=== PATIENT | male | born 1935 | race Caucasian/White ===

== ENCOUNTER 2024-02-17 20:05 | Inpatient (IN) | payer MEDICARE, BC, SELFPAY ==
[2024-02-17 16:18] VITALS: BMI 25.2
[2024-02-17 16:19] VITALS: BP 173/81
[2024-02-17 16:27] VITALS: BP 159/80
[2024-02-17 16:33] VITALS: BP 154/69
[2024-02-17 17:00] VITALS: BP 155/71
[2024-02-17 17:18] LABS: % Basophils 0.3 % (0-2); % Eosinophils 1.3 % (0-6); % Immature Granulocytes 0.8 % (0-0.5); % Lymphocytes 14.1 % (20.5-51.1); % Monocytes 9.9 % (1.7-9.3); % Neutrophils 73.6 % (42.2-75.2); Absolute Eosinophils 0.1 10^3/uL (0-0.7); Absolute Immature Granulocytes 0.1 10^3/uL (0-0.05); Absolute Lymphocytes 1.1 10^3/uL (1.2-3.4); Absolute Monocytes 0.7 10^3/uL (0.1-0.6); Absolute Neutrophils 5.5 10^3/uL (1.4-6.5); Hematocrit 36.4 % (39.0-52.0); Hemoglobin 12.2 g/dL (13.0-18.0); Mean Corp Hgb Conc. 33.5 g/dL (33.0-37.0); Mean Corpuscular Hgb 28.5 pg (27.0-31.0); Mean Platelet Volume 10.4 fL (7.4-10.4); Nucleated Red Blood Cells % 0 % (-); Platelet Count 214 10^3/uL (130-400); Red Blood Cell Count 4.28 10^6/uL (4.70-6.10); Red Cell Dist. Width 13.8 % (11.5-14.5); White Blood Cell Count 7.4 10^3/uL (4.8-10.8)
[2024-02-17 17:37] LABS: ALT (SGPT) 19 U/L (0-50); AST (SGOT) 22 U/L (17-59); Albumin 4.3 g/dl (3.5-5.0); Alkaline Phosphatase 52 U/L (38-126); Blood Urea Nitrogen 34 mg/dl (9-20); Calcium 9.8 mg/dl (8.4-10.2); Carbon Dioxide 26 mmol/L (22-30); Chloride 106 mmol/L (98-107); Estimated Creatinine Clearance 38 ml/min; Glucose 83 mg/dl (70-99); Potassium 4.7 mmol/L (3.5-5.1); Sodium 138 mmol/L (135-145); Total Bilirubin 0.4 mg/dl (0.2-1.3); Total Protein 6.5 g/dl (6.3-8.2); eGFR 52.84
--- NOTE | 2024-02-17 17:52 | ED.GENMED ---
History of Present Illness
General
Chief Complaint: Change in Mental Status
Source: patient and spouse
Time Seen by Provider: 02/17/24 17:16
History of Present Illness
History of Present Illness:
Patient is a 88-year-old male with history of prior TIA about 2 years ago, hypertension, hyperlipidemia, BPH, mild cognitive impairment presenting to the emergency department altered mental status. Patient's is at bedside provides most of the
story. Patient himself states that he has been tired over the past 2 days. Patient's states that yesterday she noticed that he was disoriented and did not know he was at home. She came home this morning and noticed that he was still
disoriented but was able to be oriented. His last known normal was at 11 AM. When she checked in on him at 2 PM she noticed that he was having slurring of his speech. It did improve shortly after. She also noted that he had an abnormal gait when
this occurred. That has also resolved. At this time patient's does state that the confusion is intermittent. During his last TIA 2 years ago he did have significant dysarthria. He is on aspirin. He did take it today. He denies any chest
pain. No fevers or chills. No urinary symptoms. No cough or shortness of breath. No recent falls. He is not on any blood thinners.
If applicable-neuro sx onset
Onset of symptoms known: Yes
Date of onset of symptoms: 02/17/24
Time of onset of symptoms: 14:00
Time pt last seen normal is known: Yes
Date last time pt seen normal: 02/17/24
Time last time pt seen normal: 11:00
Phy Exam
Physical Exam
Physical Exam:
GENERAL: in no acute distress
HEENT: normocephalic, extraocular movements intact, moist oral mucosa
NECK: normal inspection
RESPIRATORY: no respiratory distress, clear to auscultation bilaterally
CARDIOVASCULAR: regular rate and rhythm
ABDOMEN/: soft, non-distended, non-tender to palpation, no rebound or guarding
EXTREMITIES: non-tender, no edema/swelling
NEUROLOGIC: NEUROLOGIC: alert and oriented x 2 (disoriented to time), cranial nerves II-XII intact, right upper extremity strength 5/5, left upper extremity strength 5/5, right lower extremity strength 5/5, left lower extremity strength 5/5, normal
sensation to light touch, normal [id number] and [id number], gait not tested formally
SKIN: warm
Scores
NIH Stroke Score
Level of Consciousness: 0 - Alert
LOC Questions: 1-Answers one correctly
LOC Commands: 0-Performs both correctly
Best Horizontal Gaze: 0-Normal
Visual Negrete: 0=Normal, no visual loss
Facial Palsy: 0=Normal, symmetrical
Motor - Right Arm: 0=No drift 10 seconds
Motor - Left Arm: 0=No drift 10 seconds
Motor - Right Le-No drift 5 seconds
Motor - Left Le-No drift 5 seconds
Limb Ataxia: 0-Absent
Sensation: 0-Normal
Best Language: 0-No aphasia
Dysarthria: 0-Normal
Extinction and Inattention: 0-No abnormality
Total Score:: 1
Course
Orders/Labs/Results
Orders:
Orders
02/17/24 17:10
Complete Blood Count/With Diff Urgent
Comprehensive Metabolic Panel Urgent
02/17/24 17:35
CT Head W/o Iv Contrast Urgent
Comment:
Reason For Exam: TIA symptoms, AMS
02/17/24 17:36
Electrocardiogram (*1) Stat
Reason for Study: Other
Other Reason for Exam: neuro symptoms
EKG- Treatment ONCE
02/17/24 17:58
CR Chest - 2 Views Urgent
Comment:
Reason For Exam: AMS
02/17/24 18:33
COVID-19 Antigen Urgent
Source: Nasal Swab
Urinalysis Reflex To Culture Urgent
Date Specimen was Collected: 02/17/24
Time Specimen was Collected: 18:32
Urine Microscopic Reflex Cult Urgent
Urine Culture Urgent
TIRSO Source: U
Specimen Description:
Date Specimen was Collected: 02/17/24
Time Specimen was Collected: 18:32
02/17/24 19:14
Cephalexin Monohydrate [Keflex] 500 mg PO NOW STA
Abnormal Lab Results
02/17/24 02/17/24
17:10 18:33
RBC 4.28 L 10^6/uL
(4.70-6.10)
Hgb 12.2 L g/dL
(13.0-18.0)
Hct 36.4 L %
(39.0-52.0)
Abs Immat Gran (auto) 0.1 H 10^3/uL
(0-0.05)
Absolute Lymphs (auto) 1.1 L 10^3/uL
(1.2-3.4)
Absolute Monos (auto) 0.7 H 10^3/uL
(0.1-0.6)
Immature Gran % 0.8 H %
(0-0.5)
Lymphocytes % 14.1 L %
(20.5-51.1)
Monocytes % 9.9 H %
(1.7-9.3)
BUN 34 H mg/dl
(9-20)
Ur Occult Blood Reflex 1+ A
(Negative)
Leukocyte Esterase Rfl 2+ A
(Negative)
Urine WBC (Reflex) >100 A /HPF
(0-5)
Urine Bacteria (Reflex) Moderate A
(Negative)
02/17/24 17:10
02/17/24 17:10
Vital Signs
Initial and Last Documented VS:
Initial Vital Signs
Temp Pulse Resp BP Pulse Ox
98.7 F 80 16 173/81 98
02/17/24 16:19 02/17/24 16:19 02/17/24 16:19 02/17/24 16:19 02/17/24 16:19
Last Documented Vital Signs
Temp Pulse Resp BP Pulse Ox
98.7 F 78 19 160/78 98
02/17/24 16:19 02/17/24 18:00 02/17/24 18:00 02/17/24 18:00 02/17/24 18:00
MDM/Problems Addressed
Differential Diagnosis Includes:
Patient is a 88-year-old male with history of prior TIA, hypertension, mild cognitive impairment, BPH presenting to the emergency department with altered mental status as well as dysarthria and gait imbalance that has now resolved. Vitals are
initially notable for hypertension though it did improve without any intervention. Exam does show a man who is oriented x 2. He does not have any focal deficits at this time. Patient's does state that during the drive over here it did
improve. concern for TIA versus CVA versus infection such as UTI COVID or pneumonia could be anemia given the tiredness or metabolic derangement. Will check blood work EKG urine COVID swab chest x-ray and CT scan..
*Critical Care Note
Total Time (30-74mins, 75-104mins- exclusive of procedures): Not Applicable
Update Note
Update Note:
Labs. Unremarkable. Urine does appear infected. Given the disorientation and age will treat with antibiotics.
CT as interpreted by me: No acute abnormality. He already took aspirin for today so we will hold off
I discussed the case with hospitalist for admission for suspected TIA workup as well as altered mental status possibly from this UTI
ED Attending Note
-
Portions of this chart may have been created with voice recognition software.� Occasional wrong word or��sound alike� substitutions may have occurred due to the inherent limitations of voice recognition software.
Discharge Plan
Departure
Patient Disposition: Admit
Date of Disposition: 02/17/24
Time of Disposition: 19:17
Admit to doctor: jad
Presentation/result/management discussed w/ accepting MD/DO: Hospitalist
Discharge Problem:
Brain TIA, Acute UTI, AMS (altered mental status)
Referrals:
PRIVATE,PHYSICIAN [Family Provider] -
Interventions
Interventions:
*Risk Screen - Suicide Last Done: 02/17/24 16:19
*Neglect/Abuse Screening Last Done: 02/17/24 16:19
ED- Fall Risk Assessment Last Done: 02/17/24 17:47
ED- Pulmonary Assessment Last Done: 02/17/24 17:47
ED- Neurological Assessment Last Done: 02/17/24 17:47
ED- Cardiac Assessment Last Done: 02/17/24 17:47
ED Swallowing Screen Last Done: 02/17/24 17:47
Discharge Date and Time
Print Language: SLOVENIAN
[2024-02-17 18:00] VITALS: BP 160/78
[2024-02-17 18:42] LABS: Urine Albumin Trace (Neg - Trace); Urine Bilirubin Negative (Negative); Urine Character Slightly Cloudy (Clear); Urine Color Yellow; Urine Glucose Negative (Negative); Urine Ketone Negative (Negative); Urine Leukocyte 2+ (Negative); Urine Nitrite Negative (Negative); Urine Occult Blood 1+ (Negative); Urine Urobilinogen Negative (Neg - 1+)
[2024-02-17 18:52] LABS: COVID-19 Antigen Negative (Negative)
[2024-02-17 18:53] LABS: Urine Bacteria Moderate (Negative); Urine Red Blood Cell 0-2 /HPF (0-2); Urine White Cell >100 /HPF (0-5)
[2024-02-17] MEDS: KEFLEX 500 MG PO (19:22)
--- NOTE | 2024-02-17 19:42 | HPS.HSE ---
Family Physician
-
Family Physician: PHYSICIAN PRIVATE
Chief Complaint
-
altered mental status
History of Present Illness
88-year-old male past medical history of TIA 2 years ago, carpal tunnel, hypertension, hyperlipidemia, BPH, mild cognitive impairment, presenting to the emergency room for mental status. Patient's provides most of the story. Patient states
that he has been tired for the past 2 days. states that yesterday she noticed he was disoriented and did not know he was at home. She came home this morning noticed that he was still disoriented. His last known normal was at 11 AM. She
checked on him at 2 PM he was having slurred speech which did improve later. She also noticed he had an abnormal gait at the same time which is also improved. He had some headache before. Patient's states that confusion is intermittent. He
had dysarthria he had TIA 2 years ago. He denies chest pain. He denies any fevers or chills. He denies any urinary symptoms. He denies any cough or shortness of breath. He denies any recent falls. Denies any nausea vomiting or diarrhea.
He denies any blurry vision. He has some chronic numbness and tingling in his left hand carpal tunnel.
Denies smoking or alcohol use.
Medical History
Past Medical History
Past Medical History: Reports Other (TIA 2 years ago, carpal tunnel, hypertension, hyperlipidemia, BPH, mild cognitive impairment)
Past Surgical History: Reports None
Social History
Tobacco: Non-smoker
Alcohol: None
Drug: None
Family History
Family History: Not pertinent
Allergies / Home Medications
Allergies reflects when Allergies were last updated in [facility].
Home Medications with original date entered in [facility]
Allergy/Medication List:
Allergies
Allergy/AdvReac Type Severity Reaction Status Date / Time
No Known Allergies Allergy Unverified 02/17/24 16:26
Home Medications
aspirin 81 mg tablet,delayed release 81 mg PO DAILY 02/17/24
atorvastatin 40 mg tablet 40 mg PO Q48H 02/17/24
cholecalciferol (vitamin D3) 50 mcg (2,000 unit) tablet (Vitamin D3) 50 mcg PO BID 02/17/24
dutasteride 0.5 mg capsule 0.5 mg PO DAILY 02/17/24
enalapril maleate 20 mg tablet 20 mg PO BID 02/17/24
magnesium oxide 400 mg PO DAILY 02/17/24
mv-mn-folic 200 mcg-vit K 15 mcg-lutein 5 mg-zeaxanthin 1 mg capsule (PreserVision AREDS 2 Plus Multivit) 1 cap PO BID 02/17/24
tadalafil 5 mg tablet 5 mg PO DAILY 02/17/24
tamsulosin 0.4 mg capsule 0.4 mg PO HS 02/17/24
Review of Systems
-
History Source: Patient
A 12 point ROS was completed and negative except as noted: Yes
Constitutional: Reports No Symptoms
EENT: Reports No Symptoms
Respiratory: Reports No Symptoms
Cardiac: Reports No Symptoms
Abdomen/GI: Reports No Symptoms
: Reports No Symptoms
Musculoskeletal: Reports No Symptoms
Skin: Reports No Symptoms
Neurological: Reports See HPI
Endocrine: Reports No Symptoms
Hematologic/Lymphatic: Reports No Symptoms
Psych: Reports No Symptoms
Physical Exam
Vital Signs
Vital Signs
Temp Pulse Resp BP Pulse Ox
98.7 F 78 19 160/78 98
02/17/24 16:19 02/17/24 18:00 02/17/24 18:00 02/17/24 18:00 02/17/24 18:00
Physical Exam
General: Well Developed, Well Nourished and No Apparent Distress
HEENT: NormoCephalic, Moist mucous membranes and Atraumatic
Respiratory: Clear
Cardiac: S1/S2 and Regular Rhythm; No Murmur or Rub
GI: Soft, Non Tender, Non Distended and Normal Bowel Sounds; No Organomegaly
Rectal: Deferred by Provider
Musculoskeletal: No Clubbing, No Cyanosis and No Edema
Skin: No Rash
Neuro: Nonfocal/grossly intact
Laboratory Results
-
02/17/24 17:10
02/17/24 17:10
Laboratory Results
Total Bilirubin 0.4 mg/dl (0.2-1.3) 02/17/24 17:10
AST 22 U/L (17-59) 02/17/24 17:10
ALT 19 U/L (0-50) 02/17/24 17:10
Alkaline Phosphatase 52 U/L (38-126) 02/17/24 17:10
Data Reviewed
-
Lab Data: Labs Reviewed by me
Old Records: Reviewed
Impression/Plan
-
IMPRESSION:
PLAN:
# Urinary tract infection versus less likely TIA
-No focal deficits on examination, presentation overall more consistent with metabolic encephalopathy from UTI
-UA shows greater than 100 WBC, moderate bacteria, plus leukocyte esterase, slightly cloudy urine
-Ceftriaxone
-Can consider TIA/CVA workup if no improvement with antibiotic
History of TIA 2 years ago
-Continue aspirin, statin
Essential hypertension
-Continue enalapril
Hyperlipidemia
-Continue statin
BPH
-Continue dutasteride, tamsulosin, tadalafil
Mild cognitive impairment
Full code
DVT prophylaxis�SCDs
Regular diet
--- NOTE | 2024-02-17 22:48 | PTCARENOTE ---
Pt arrived onto floor @2248. Pt able to ambulate into room with minimal assistance. Pt with no complaints of pain at this time, vital signs are stable. Pt oriented to room and call loera; will continue to monitor
[2024-02-17 23:00] VITALS: BP 144/65; BMI 24.5
[2024-02-17] MEDS: VITAMIN D3 (cholecalciferol) 50 MCG PO (23:12)
[2024-02-17] MEDS: VASOTEC 20 MG PO (23:12)
[2024-02-17] MEDS: OCUVITE SOFTGEL 1 CAP PO (23:12)
[2024-02-17] MEDS: STERILE WATER FOR INJECTION 10 ML IV (23:13)
[2024-02-17] MEDS: ROCEPHIN 1000 MG IV (23:13)
[2024-02-17] MEDS: FLOMAX 0.4 MG PO (23:14)
[2024-02-18] VITALS (8 sets, daily range): BP systolic 119–164; BP diastolic 62–79; PULSE 80; O2SAT 100
[2024-02-18 07:09] LABS: % Basophils 0.2 % (0-2); % Immature Granulocytes 0.6 % (0-0.5); % Lymphocytes 12.8 % (20.5-51.1); % Monocytes 7.8 % (1.7-9.3); % Neutrophils 76.6 % (42.2-75.2); Absolute Eosinophils 0.2 10^3/uL (0-0.7); Absolute Immature Granulocytes 0.1 10^3/uL (0-0.05); Absolute Monocytes 0.6 10^3/uL (0.1-0.6); Absolute Neutrophils 6.2 10^3/uL (1.4-6.5); Hematocrit 38.2 % (39.0-52.0); Hemoglobin 12.8 g/dL (13.0-18.0); Mean Corp Hgb Conc. 33.5 g/dL (33.0-37.0); Mean Corpuscular Hgb 28.6 pg (27.0-31.0); Mean Corpuscular Volume 85.3 fL (80.0-94.0); Mean Platelet Volume 10.4 fL (7.4-10.4); Nucleated Red Blood Cells % 0 % (-); Platelet Count 202 10^3/uL (130-400); Red Blood Cell Count 4.48 10^6/uL (4.70-6.10); Red Cell Dist. Width 13.7 % (11.5-14.5); White Blood Cell Count 8.1 10^3/uL (4.8-10.8)
[2024-02-18] MEDS: VITAMIN D3 (cholecalciferol) 50 MCG PO ×2 (07:34→19:59)
[2024-02-18] MEDS: ASPIR LOW (ENTERIC COATED) 81 MG PO (07:34)
[2024-02-18] MEDS: VASOTEC 20 MG PO ×2 (07:34→19:59)
[2024-02-18] MEDS: OCUVITE SOFTGEL 1 CAP PO ×2 (07:34→19:59)
[2024-02-18] MEDS: PROSCAR 5 MG PO (07:34)
[2024-02-18] MEDS: MAG-TAB SR 84 MG PO (07:35)
[2024-02-18 07:36] LABS: ALT (SGPT) 19 U/L (0-50); AST (SGOT) 22 U/L (17-59); Albumin 4.4 g/dl (3.5-5.0); Alkaline Phosphatase 57 U/L (38-126); Blood Urea Nitrogen 35 mg/dl (9-20); Calcium 9.8 mg/dl (8.4-10.2); Carbon Dioxide 24 mmol/L (22-30); Chloride 107 mmol/L (98-107); Estimated Creatinine Clearance 49 ml/min; Glucose 102 mg/dl (70-99); Potassium 4.9 mmol/L (3.5-5.1); Sodium 137 mmol/L (135-145); Total Bilirubin 0.5 mg/dl (0.2-1.3); Total Protein 6.7 g/dl (6.3-8.2); eGFR > 60.00
--- NOTE | 2024-02-18 13:07 | CM ---
Case natan reviewed patient's chart and met with eloise and eloise lives with spouse alec one story home, patint is indedpent with adl's and ambulation, no dme, patient states he does not have VN at this time.
PCP: Dr. Moseley
Pharmacy: [facility]
--- NOTE | 2024-02-18 17:11 | W.PN.HOSP.TC ---
Today's Communication/Plan
-
see outlined plan
Assessment / Plan
Assessment / Plan
Assessment:
Complicated UTI in male
Hx of BPH with self-cath 1/day
- bladder scan/SC protocol in place
- continue Rocephin, day 2; await cultures
- continue dutasteride, tamsulosin, tadalafil
TME from UTI
- felt less likely TIA with daily ASA compliance, negative CT head and recent carotid US normal
- monitor clinically as UTI tx continues
History of TIA 2 years ago
- continue aspirin, statin
Essential hypertension
- continue enalapril
Hyperlipidemia
- continue statin
Mild cognitive impairment
DVT ppx: SCDS
Code: Full
Anticipated Discharge: > 48 hours
Subjective/Interval History
-
Date of Service: February 18, 2024
no new complaints
feels much improved today; no focal deficits
Objective Data
-
Labs:
Laboratory Results
02/18/24
06:47
WBC 8.1
Hgb 12.8 L
Hct 38.2 L
Plt Count 202
Sodium 137
Potassium 4.9
Chloride 107
Carbon Dioxide 24
BUN 35 H
Creatinine 1.0
Glucose 102 H
Calcium 9.8
Total Bilirubin 0.5
AST 22
ALT 19
Alkaline Phosphatase 57
Vital Signs:
Vital Signs
Temp Pulse Resp BP Pulse Ox
98.1 F 79 18 138/67 99
02/18/24 15:00 02/18/24 15:00 02/18/24 15:00 02/18/24 15:00 02/18/24 15:00
I&O
02/17/24 02/18/24 02/19/24
06:59 06:59 06:59
Intake Total 120 / 120
Balance 120 / 120
Physical Exam
-
General: No Apparent Distress
HEENT: Normocephalic and Atraumatic
Respiratory: Negative Wheezes
Cardiac: Regular Rhythm and S1/S2
GI: Soft
Musculoskeletal: No Edema
Neuro: AO x 3
Hematologic / Lymphatic: No Lymphadenopathy
Psych: Calm
Data Reviewed
-
Total Time Spent with Patient (in minutes): 44
Labs: Labs Reviewed by me
[2024-02-18] MEDS: FLOMAX 0.4 MG PO (19:59)
[2024-02-18] MEDS: ROCEPHIN 1000 MG IV (23:07)
[2024-02-18] MEDS: STERILE WATER FOR INJECTION 10 ML IV (23:07)
[2024-02-19] VITALS (7 sets, daily range): BP systolic 114–172; BP diastolic 6–87
[2024-02-19 07:43] LABS: Hematocrit 38.8 % (39.0-52.0); Hemoglobin 13.3 g/dL (13.0-18.0); Mean Corp Hgb Conc. 34.3 g/dL (33.0-37.0); Mean Corpuscular Hgb 28.6 pg (27.0-31.0); Mean Corpuscular Volume 83.4 fL (80.0-94.0); Mean Platelet Volume 10.4 fL (7.4-10.4); Platelet Count 217 10^3/uL (130-400); Red Blood Cell Count 4.65 10^6/uL (4.70-6.10); Red Cell Dist. Width 13.5 % (11.5-14.5); White Blood Cell Count 10.5 10^3/uL (4.8-10.8)
[2024-02-19] MEDS: MAG-TAB SR 84 MG PO (07:53)
[2024-02-19] MEDS: LIPITOR 40 MG PO (07:54)
[2024-02-19] MEDS: OCUVITE SOFTGEL 1 CAP PO ×2 (07:54→20:34)
[2024-02-19] MEDS: VASOTEC 20 MG PO ×2 (07:55→20:35)
[2024-02-19] MEDS: ASPIR LOW (ENTERIC COATED) 81 MG PO (07:55)
[2024-02-19] MEDS: VITAMIN D3 (cholecalciferol) 50 MCG PO ×2 (07:55→20:35)
[2024-02-19] MEDS: PROSCAR 5 MG PO (07:55)
[2024-02-19 08:00] LABS: Calcium 9.8 mg/dl (8.4-10.2); Carbon Dioxide 23 mmol/L (22-30); Estimated Creatinine Clearance 55 ml/min; Potassium 4.3 mmol/L (3.5-5.1); eGFR > 60.00
[2024-02-19 08:09] LABS: Blood Urea Nitrogen 28 mg/dl (9-20); Chloride 105 mmol/L (98-107); Glucose 115 mg/dl (70-99); Sodium 134 mmol/L (135-145)
--- NOTE | 2024-02-19 08:34 | W.PN.HOSP.TC ---
Today's Communication/Plan
-
switch to UNASYN for CONS reported in urine
Assessment / Plan
Assessment / Plan
Assessment:
Complicated UTI in male
Hx of BPH with self-cath 1/day
- bladder scan/SC protocol in place
- reported CONS in Urine; switch to Unasyn, day 1
- continue dutasteride, tamsulosin, tadalafil
TME from UTI
- felt less likely TIA with daily ASA compliance, negative CT head and recent carotid US normal
- monitor clinically as UTI tx continues
History of TIA 2 years ago
- continue aspirin, statin
Essential hypertension
- continue enalapril
Hyperlipidemia
- continue statin
Mild cognitive impairment
DVT ppx: SCDS
Code: Full
Anticipated Discharge: Within 24 hours
Subjective/Interval History
-
Date of Service: February 19, 2024
no new complaints
offered condolences to patient and his ('s mother passed last evening on hospice)
Objective Data
-
Labs:
Laboratory Results
02/19/24
07:26
WBC 10.5
Hgb 13.3
Hct 38.8 L
Plt Count 217
Sodium 134 L
Potassium 4.3
Chloride 105
Carbon Dioxide 23
BUN 28 H
Creatinine 0.9
Glucose 115 H
Calcium 9.8
Vital Signs:
Vital Signs
Temp Pulse Resp BP Pulse Ox
98.2 F 82 16 114/62 98
02/19/24 07:20 02/19/24 07:20 02/19/24 07:20 02/19/24 07:20 02/19/24 07:20
I&O
02/18/24 02/19/24 02/20/24
06:59 06:59 06:59
Intake Total 120 / 120 1440 / 1440
Output Total 1450 / 1450
Balance 120 / 120 -10 / -10
Physical Exam
-
General: No Apparent Distress
HEENT: Normocephalic and Atraumatic
Respiratory: Negative Wheezes
Cardiac: Regular Rhythm and S1/S2
GI: Soft
Genito-urinary: No Costovertebral Tender
Musculoskeletal: No Edema
Neuro: AO x 3
Hematologic / Lymphatic: No Lymphadenopathy
Psych: Calm
Data Reviewed
-
Total Time Spent with Patient (in minutes): 42
Labs: Labs Reviewed by me
[2024-02-19] MEDS: UNASYN IV ×3 (10:32→23:17)
[2024-02-19] MEDS: LIDOCAINE 4% PATCH 1 PATCH TOPICAL (10:32)
[2024-02-19] MEDS: TYLENOL 650 MG PO (10:33)
[2024-02-19] MEDS: FLOMAX 0.4 MG PO (20:35)
[2024-02-20 03:14] VITALS: BP 114/75
[2024-02-20] MEDS: UNASYN IV ×2 (04:13→08:36)
[2024-02-20] MEDS: FLUSH (NSS) 2 FLUSH IV (04:14)
[2024-02-20] MEDS: LIDOCAINE URO-JET 2% 1 SYRINGE TOPICAL (05:20)
--- NOTE | 2024-02-20 05:20 | PTCARENOTE ---
Pt. forgetful, he refused to be straight cathed due to penis hurting from previous caths, notified JOSE ANTONIO Pace, ordered Lidocaine gel to apply, bladder scanned pt. for 697 ml, pt. called to question the procedure, staff and explained the
importance of removing the urine in the bladder, pt. agreed, straight cathed pt. for 850 ml clear yellow urine while was on speaker phone with pt. talking him through, pt. tolerated well.
[2024-02-20 07:42] VITALS: BP 130/74
[2024-02-20] MEDS: ASPIR LOW (ENTERIC COATED) 81 MG PO (08:33)
[2024-02-20] MEDS: VASOTEC 20 MG PO (08:33)
[2024-02-20] MEDS: PROSCAR 5 MG PO (08:34)
[2024-02-20] MEDS: VITAMIN D3 (cholecalciferol) 50 MCG PO (08:34)
[2024-02-20] MEDS: OCUVITE SOFTGEL 1 CAP PO (08:35)
[2024-02-20] MEDS: MAG-TAB SR 84 MG PO (08:35)
[2024-02-20] MEDS: LIDOCAINE 4% PATCH 1 PATCH TOPICAL (08:35)
[2024-02-20 08:36] LABS: Hematocrit 36.3 % (39.0-52.0); Hemoglobin 12.3 g/dL (13.0-18.0); Mean Corp Hgb Conc. 33.9 g/dL (33.0-37.0); Mean Corpuscular Hgb 29.5 pg (27.0-31.0); Mean Corpuscular Volume 87.1 fL (80.0-94.0); Mean Platelet Volume 10.8 fL (7.4-10.4); Platelet Count 183 10^3/uL (130-400); Red Blood Cell Count 4.17 10^6/uL (4.70-6.10); Red Cell Dist. Width 13.5 % (11.5-14.5); White Blood Cell Count 8.1 10^3/uL (4.8-10.8)
[2024-02-20 09:21] LABS: Blood Urea Nitrogen 21 mg/dl (9-20); Calcium 9.4 mg/dl (8.4-10.2); Carbon Dioxide 29 mmol/L (22-30); Chloride 103 mmol/L (98-107); Estimated Creatinine Clearance 55 ml/min; Glucose 98 mg/dl (70-99); Potassium 4.3 mmol/L (3.5-5.1); Sodium 137 mmol/L (135-145); eGFR > 60.00
--- NOTE | 2024-02-20 09:41 | W.PN.HOSP.TC ---
Today's Communication/Plan
-
Bianchi and discharge
Assessment / Plan
Assessment / Plan
Assessment:
Complicated UTI in male
Hx of BPH with self-cath 1/day
- bladder scan/SC protocol in place but with intermittent issues with cathing at hospital, possible strictures; will place Bianchi and OP Urology f/u
- CONS in urine; dc on Augmentin x 8 further days to complete 10 day course
- continue dutasteride, tamsulosin, tadalafil
TME from UTI
- felt less likely TIA with daily ASA compliance, negative CT head and recent carotid US normal
- monitor clinically as UTI tx continues
History of TIA 2 years ago
- continue aspirin, statin
Essential hypertension
- continue enalapril
Hyperlipidemia
- continue statin
Mild cognitive impairment
DVT ppx: SCDS
Code: Full
Anticipated Discharge: Today
Subjective/Interval History
-
Date of Service: February 20, 2024
no new complaints
reported issues with straight cath last evening; family hesitant to go back to that at home, report prior issues resulted in Bianchi placement.
Objective Data
-
Labs:
Laboratory Results
02/20/24
07:11
WBC 8.1
Hgb 12.3 L
Hct 36.3 L
Plt Count 183
Sodium 137
Potassium 4.3
Chloride 103
Carbon Dioxide 29
BUN 21 H
Creatinine 0.9
Glucose 98
Calcium 9.4
Vital Signs:
Vital Signs
Temp Pulse Resp BP Pulse Ox
97.5 F 80 16 130/74 98
02/20/24 07:42 02/20/24 07:42 02/20/24 07:42 02/20/24 07:42 02/20/24 07:42
I&O
02/19/24 02/20/24 02/21/24
06:59 06:59 06:59
Intake Total 1440 / 1440 1310 / 1310
Output Total 1450 / 1450 1825 / 1825
Balance -10 / -10 -515 / -515
Physical Exam
-
General: No Apparent Distress
HEENT: Normocephalic and Atraumatic
Respiratory: Negative Wheezes
Cardiac: Regular Rhythm and S1/S2
GI: Soft
Genito-urinary: No Costovertebral Tender
Musculoskeletal: No Edema
Neuro: AO x 3
Psych: Calm
Data Reviewed
-
Total Time Spent with Patient (in minutes): 45
Labs: Labs Reviewed by me
--- NOTE | 2024-02-20 10:05 | W.DS.TRANS ---
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
-
Discharge Instructions:
Discharge Diagnosis/Procedures UTI, hx of self cath
Diet Regular
Activity As tolerated
Bathing Restrictions None
Instructions:
Stand-Alone Forms:
Changes to Home Medications: No
Discharge Medications:
DC Medications w/original date entered in [facility]
aspirin 81 mg tablet,delayed release 81 mg PO DAILY Blood Clot Prevention/Tx 02/17/24
atorvastatin 40 mg tablet 40 mg PO Q48H High Cholesterol 02/17/24
cholecalciferol (vitamin D3) 50 mcg (2,000 unit) tablet (Vitamin D3) 50 mcg PO BID Supplement 02/17/24
dutasteride 0.5 mg capsule 0.5 mg PO DAILY Urinary Issue 02/17/24
enalapril maleate 20 mg tablet 20 mg PO BID Blood Pressure 02/17/24
magnesium oxide 400 mg PO DAILY Supplement 02/17/24
mv-mn-folic 200 mcg-vit K 15 mcg-lutein 5 mg-zeaxanthin 1 mg capsule (PreserVision AREDS 2 Plus Multivit) 1 cap PO BID Supplement 02/17/24
tadalafil 5 mg tablet 5 mg PO DAILY Urinary Issue 02/17/24
tamsulosin 0.4 mg capsule 0.4 mg PO HS Urinary Issue 02/17/24
amoxicillin 875 mg-potassium clavulanate 125 mg tablet 1 tab PO Q12H #16 tabs 02/20/24
Home Medication Changes
Pending Results: No
Total time spent discharging patient (in min): 42
[2024-02-20 10:24] VITALS: BP 153/80
--- NOTE | 2024-02-20 11:08 | CM ---
Addendum entered by Temitope Olivo RN 02/20/24 16:22:
Patient accepted by [facility] in [facility].
Original Note:
Patient with Hx of self caths with Dx UTI.
Met with patient and while patient was preparing for d/c. The patient states he feels ready to go home today. IMM completed. will provide transport home today.
would like patient to have VN check due to [place], stating patient will not be seen by urologist for 2 weeks. She agrees to a referral to [facility].
Message to Dr Burr requesting VN order.
Plan home today with [facility].
== END 2024-02-20 14:23 | disposition home health service (06) | DRG 689 ==
LOC: 4 WEST ACU 20:05
PROVIDERS: ADMITTING PHYSICIAN Hospitalist; ATTENDING PHYSICIAN Internal Medicine; EMERGENCY PHYSICIAN Student in an Organized Health Care Education/Training Program
DX: N39.0 Urinary tract infection, site not specified (principal); G92.8 Other toxic encephalopathy; I10 Essential (primary) hypertension; B95.8 Unspecified staphylococcus as the cause of diseases classified elsewhere; E78.5 Hyperlipidemia, unspecified; N40.0 Benign prostatic hyperplasia without lower urinary tract symptoms; G31.84 Mild cognitive impairment of uncertain or unknown etiology; G56.02 Carpal tunnel syndrome, left upper limb; R26.9 Unspecified abnormalities of gait and mobility; Z79.82 Long term (current) use of aspirin; Z79.899 Other long term (current) drug therapy; Z86.73 Personal history of transient ischemic attack (TIA), and cerebral infarction without residual deficits
CPT/HCPCS: 70450; 71046; 73564; 80048; 80053; 81003; 81015; 85025; 85027; 87086; 87147; 87811; 93005; 97162; 97166; 99285

== ENCOUNTER 2024-03-11 03:28 | Emergency (ER) | payer MEDICARE, BC, SELFPAY ==
[2024-03-11 03:36] VITALS: BP 104/57
[2024-03-11 04:50] VITALS: BP 123/55
[2024-03-11 05:00] VITALS: BP 108/55
[2024-03-11 05:07] LABS: % Basophils 0.2 % (0-2); % Eosinophils 0.3 % (0-6); % Immature Granulocytes 0.6 % (0-0.5); % Lymphocytes 1.9 % (20.5-51.1); % Monocytes 3.5 % (1.7-9.3); % Neutrophils 93.5 % (42.2-75.2); Absolute Immature Granulocytes 0.1 10^3/uL (0-0.05); Absolute Lymphocytes 0.2 10^3/uL (1.2-3.4); Absolute Monocytes 0.4 10^3/uL (0.1-0.6); Absolute Neutrophils 9.3 10^3/uL (1.4-6.5); Hematocrit 36.1 % (39.0-52.0); Hemoglobin 12.5 g/dL (13.0-18.0); Mean Corp Hgb Conc. 34.6 g/dL (33.0-37.0); Mean Corpuscular Hgb 28.9 pg (27.0-31.0); Mean Corpuscular Volume 83.4 fL (80.0-94.0); Mean Platelet Volume 10.3 fL (7.4-10.4); Nucleated Red Blood Cells % 0 % (-); Platelet Count 173 10^3/uL (130-400); Red Blood Cell Count 4.33 10^6/uL (4.70-6.10); Red Cell Dist. Width 13.5 % (11.5-14.5); White Blood Cell Count 9.9 10^3/uL (4.8-10.8)
[2024-03-11 05:17] LABS: ALT (SGPT) 23 U/L (0-50); AST (SGOT) 26 U/L (17-59); Albumin 3.7 g/dl (3.5-5.0); Alkaline Phosphatase 55 U/L (38-126); Blood Urea Nitrogen 29 mg/dl (9-20); Calcium 9.6 mg/dl (8.4-10.2); Carbon Dioxide 20 mmol/L (22-30); Chloride 103 mmol/L (98-107); Glucose 142 mg/dl (70-99); Potassium 4.5 mmol/L (3.5-5.1); Sodium 133 mmol/L (135-145); Total Bilirubin 0.6 mg/dl (0.2-1.3); Total Protein 5.9 g/dl (6.3-8.2); eGFR > 60.00
[2024-03-11 06:00] VITALS: BP 109/52
--- NOTE | 2024-03-11 06:29 | ED.GENMED ---
History of Present Illness
General
Chief Complaint: Fall
Source: patient
Time Seen by Provider: 03/11/24 06:21
History of Present Illness
History of Present Illness:
88-year-old male presents to the emergency room after falling at home. Patient attempted to get out of bed to go to the bathroom and felt too weak to stand. He also felt dizzy. He collapsed to the ground. He denies striking his head. He denies
any injuries. Patient had a fever earlier in the day of . He was prescribed Bactrim by his primary care provider over which she took 1 dose. Patient was hospitalized here earlier in February for confusion related to a urinary tract infection.
He was discharged with a Bianchi catheter due to urinary retention. That catheter was removed today at the urology office. He did void a little bit at that time but has not voided spontaneously since then. His straight cathed him prior to
coming to the emergency room. He has performed intermittent straight cath for some time.
Phy Exam
Physical Exam
Physical Exam:
General: Awake, Alert, Oriented X3. No acute distress.
Vitals: unremarkable
Head: Atraumatic
Eyes: Pupils equal, EOMI
Throat: Airway intact, no exudates, dry mucosa
Neck: Trachea midline
Lungs: Clear and equal b/l
Heart: Regular rate, no murmurs
Abd: Soft, Nontender, No pulsatile mass
Neuro: Nonfocal
Skin: Warm, dry, no rash
Extremities: pulses equal b/l, no edema
Course
Orders/Labs/Results
Orders:
Orders
03/11/24 04:54
Complete Blood Count/With Diff Urgent
Comprehensive Metabolic Panel Urgent
03/11/24 06:28
0.9% Sodium Chloride 500 ml [Nss] 500 ml IV BOLUS
03/11/24 06:56
COVID-19 Antigen Urgent
Source: Nasal Swab
Urinalysis Reflex To Culture Urgent
Date Specimen was Collected: 03/11/24
Time Specimen was Collected: 06:31
Urine Microscopic Reflex Cult Urgent
Urine Culture Urgent
TIRSO Source: U
Specimen Description:
Date Specimen was Collected: 03/11/24
Time Specimen was Collected: 06:31
03/11/24 09:01
Ciprofloxacin HCl [Cipro] 500 mg PO NOW STA
Abnormal Lab Results
03/11/24 03/11/24
04:54 06:56
RBC 4.33 L 10^6/uL
(4.70-6.10)
Hgb 12.5 L g/dL
(13.0-18.0)
Hct 36.1 L %
(39.0-52.0)
Abs Immat Gran (auto) 0.1 H 10^3/uL
(0-0.05)
Absolute Neuts (auto) 9.3 H 10^3/uL
(1.4-6.5)
Absolute Lymphs (auto) 0.2 L 10^3/uL
(1.2-3.4)
Immature Gran % 0.6 H %
(0-0.5)
Neutrophils % 93.5 H %
(42.2-75.2)
Lymphocytes % 1.9 L %
(20.5-51.1)
Sodium 133 L mmol/L
(135-145)
Carbon Dioxide 20 L mmol/L
(22-30)
BUN 29 H mg/dl
(9-20)
Glucose 142 H mg/dl
(70-99)
Total Protein 5.9 L g/dl
(6.3-8.2)
Ur Occult Blood Reflex Trace A
(Negative)
Leukocyte Esterase Rfl 1+ A
(Negative)
Urine WBC (Reflex) 11-15 A /HPF
(0-5)
Urine Bacteria (Reflex) Few A
(Negative)
03/11/24 04:54
03/11/24 04:54
Vital Signs
Initial and Last Documented VS:
Initial Vital Signs
Temp Pulse Resp BP Pulse Ox
98.2 F 88 16 104/57 98
03/11/24 03:36 03/11/24 03:36 03/11/24 03:36 03/11/24 03:36 03/11/24 03:36
Last Documented Vital Signs
Temp Pulse Resp BP Pulse Ox
98.1 F 88 16 116/62 96
03/11/24 07:11 03/11/24 03:36 03/11/24 03:36 03/11/24 08:00 03/11/24 06:52
MDM/Problems Addressed
Differential Diagnosis Includes:
uti, renal failure, covid, electrolyte abnormality
MDM/Problems Addressed:
Patient presents with weakness and a fall today. No evidence of head strike. Patient is not anticoagulated. Neuroexam is nonfocal. Urinalysis shows 11-15 white blood cells per high-power field. Patient had an outpatient urinalysis and culture
which did grow Serratia. The patient was prescribed Bactrim which she took 1 dose of. I note the patient is actually taking enalapril. Given his age, enalapril use Bactrim is relatively contraindicated. Will switch his antibiotics to Cipro which
the sensitivities suggest should be effective. Patient's daughter was able to pull up the urinalysis and urine culture results on her phone.
*Pulse Oximetry
Patient hypoxic: no
*Intensive Care Nurse Interpretation
Rate: normal
Interpretation: normal
Rhythm: sinus
*Critical Care Note
Total Time (30-74mins, 75-104mins- exclusive of procedures): Not Applicable
Data Reviewed
Review of Other/Old Records Reveals: Discharge Summary
Patient Management
Social determinants of health affecting care: Strong social support
ED Attending Note
-
Portions of this chart may have been created with voice recognition software.� Occasional wrong word or��sound alike� substitutions may have occurred due to the inherent limitations of voice recognition software.
Discharge Plan
Departure
Patient Disposition: Home (Routine Discharge)
Date of Disposition: 03/11/24
Time of Disposition: 09:02
Patient with high blood pressure during this ER visit?: No
Condition: Good
Discharge Problem:
Acute UTI, Fall
Instructions: Preventing falls in adults, Urinary Tract Infection, Adult ED
Prescriptions:
New
ciprofloxacin HCl [Cipro] 500 mg tablet
500 mg PO BID Qty: 14 0RF
No Action
atorvastatin 40 mg Tablet
40 mg PO Q48H
enalapril maleate 20 mg Tablet
20 mg PO BID
aspirin 81 mg Tablet,Delayed Release (Dr/Ec)
81 mg PO DAILY
tamsulosin 0.4 mg Capsule
0.4 mg PO HS
dutasteride 0.5 mg Capsule
0.5 mg PO DAILY
tadalafil 5 mg Tablet
5 mg PO DAILY
cholecalciferol (vitamin D3) [Vitamin D3] 50 mcg (2,000 unit) Tablet
50 mcg PO BID
magnesium oxide 400 mg magnesium Tablet
400 mg PO DAILY
PreserVision AREDS 2 Plus MV 200 mcg-15 mcg- 5 mg-1 mg Capsule
1 cap PO BID
amoxicillin-pot clavulanate 875-125 mg tablet
1 tab PO Q12H Qty: 16 0RF
Referrals:
Andrews Moseley MD [Family Provider] -
Interventions
Interventions:
*Risk Screen - Suicide Last Done: 03/11/24 03:36
*General Assessment Last Done: 03/11/24 05:14
*Neglect/Abuse Screening Last Done: 03/11/24 03:36
ED- Fall Risk Assessment Last Done: 03/11/24 08:00
*Nursing Disposition Last Done: 03/11/24 10:03
ED-Musculoskeletal Assessment Last Done: 03/11/24 05:13
ED- Neurological Assessment Last Done: 03/11/24 05:12
ED-Skin Assessment Last Done: 03/11/24 05:13
Discharge Date and Time
Discharge Date/Time: 03/11/24 10:02
Print Language: CZECH
[2024-03-11 07:00] VITALS: BP 114/55
[2024-03-11 07:08] LABS: Urine Albumin Negative (Neg - Trace); Urine Bilirubin Negative (Negative); Urine Character Clear (Clear); Urine Color Yellow; Urine Glucose Negative (Negative); Urine Ketone Negative (Negative); Urine Leukocyte 1+ (Negative); Urine Nitrite Negative (Negative); Urine Occult Blood Trace (Negative); Urine Specific Gravity 1.015 (<1.030); Urine Urobilinogen Negative (Neg - 1+)
[2024-03-11] MEDS: NSS 500 IV (07:12)
[2024-03-11 07:31] LABS: COVID-19 Antigen Negative (Negative)
[2024-03-11 08:00] VITALS: BP 116/62
[2024-03-11 08:03] LABS: Urine Amorphous Seen; Urine Mucus Few
[2024-03-11 08:05] LABS: Urine Red Blood Cell 0-2 /HPF (0-2)
[2024-03-11 08:06] LABS: Urine Bacteria Few (Negative)
[2024-03-11] MEDS: CIPRO 500 MG PO (09:40)
== END 2024-03-11 10:02 | disposition home or self-care (01) ==
LOC: EMR 03:28
PROVIDERS: Emergency Medicine; EMERGENCY PHYSICIAN Emergency Medicine; FAMILY PHYSICIAN Internal Medicine
DX: N39.0 Urinary tract infection, site not specified (principal); W19.XXXA Unspecified fall, initial encounter; Z87.440 Personal history of urinary (tract) infections
CPT/HCPCS: 99282; 80053; 81003; 81015; 85025; 87086; 87811

== ENCOUNTER 2024-11-18 12:42 | Emergency (ER) | payer MEDICARE, SELFPAY ==
[2024-11-18 12:45] VITALS: BP 168/79
--- NOTE | 2024-11-18 13:35 | ED.GENMED ---
History of Present Illness
General
Chief Complaint: Urinary Symptoms
Source: patient
Exam Limitations: none
Time Seen by Provider: 11/18/24 13:27
Nursing documentation reviewed up to this point in time: agreed with
History of Present Illness
History of Present Illness:
89-year-old male with a past medical history of BPH self catheter, CVA, presents to the emergency department today with concerns of bright red blood from his straight catheter. reports that she was helping him straight cath this morning when
she noticed bright red blood output from the catheter. He straight caths once or twice daily but intermittently does urinate on his own. This is never happened the patient before. He denies pelvic pain, abdominal pain, nausea, vomiting. Of note,
patient does note right flank pain for the past couple days. He denies any fevers or chills. He denies any urinary burning, frequency. He has take aspirin but no anticoagulant medications. He follows with Dr. Orellana from [facility].
Review of Systems
Review of Systems
All Other Systems: ROS reviewed and negative except as documented in HPI and ROS
Phy Exam
Physical Exam
Physical Exam:
General: Patient is well appearing and in no acute distress; non-toxic
Skin: Warm and dry, no rashes or lesions
Head: Normocephalic, atraumatic
Eyes: Sclera non-icteric. EOMs intact.
Cardiac: Regular rate and rhythm, no murmurs
Peripheral Vascular: No lower extremity swelling or edema
Pulm: Normal respiratory effort
Abdomen: No abdominal tenderness to palpation, no CVA tenderness bilaterally
Neuro: CN II-XII intact, no focal neurologic deficits.
Psychiatric: Appropriate mood and affect.
Course
Orders/Labs/Results
Orders:
Orders
11/18/24 13:43
Straight cath- Treatment ONCE
11/18/24 13:44
CT Abd/pel Without Iv Or Oral Urgent
Comment:
Reason For Exam: right flank pain
11/18/24 14:06
Complete Blood Count/With Diff Urgent
Comprehensive Metabolic Panel Urgent
11/18/24 14:07
Urinalysis Reflex To Culture Urgent
Date Specimen was Collected: 11/18/24
Time Specimen was Collected: 13:51
Urine Microscopic Reflex Cult Urgent
Abnormal Lab Results
11/18/24 11/18/24
14:06 14:07
RBC 4.33 L 10^6/uL
(4.70-6.10)
Hgb 12.3 L g/dL
(13.0-18.0)
Hct 37.3 L %
(39.0-52.0)
Absolute Lymphs (auto) 1.0 L 10^3/uL
(1.2-3.4)
Neutrophils % 77.6 H %
(42.2-75.2)
Lymphocytes % 12.5 L %
(20.5-51.1)
BUN 32 H mg/dl
(9-20)
Ur Occult Blood Reflex 3+ A
(Negative)
Urine RBC 11-15 A /HPF
(0-2)
Urine Bacteria (Reflex) Few A
(Negative)
11/18/24 14:06
11/18/24 14:06
Vital Signs
Initial and Last Documented VS:
Initial Vital Signs
Temp Pulse Resp BP Pulse Ox
97.6 F 76 16 168/79 98
11/18/24 12:45 11/18/24 12:45 11/18/24 12:45 11/18/24 12:45 11/18/24 12:45
Last Documented Vital Signs
Temp Pulse Resp BP Pulse Ox
97.6 F 67 16 149/70 99
11/18/24 12:45 11/18/24 15:15 11/18/24 15:15 11/18/24 15:00 11/18/24 15:15
MDM/Problems Addressed
Differential Diagnosis Includes:
ddx include nephrolithiasis, malignancy, UTI, interstitial nephritis, traumatic cath
MDM/Problems Addressed:
89-year-old male with a past medical history of BPH self catheter, CVA, presents to the emergency department today with concerns of bright red blood from his straight catheter. He has no prior history of these episodes. He has also had transient
right flank pain. On PE, he is well appearing, no acute distress. His hematuria resolved without intervention and he is now voiding yellow urine with no evidence of blood. His hemoglobin is at baseline. CT scan negative for obstructive process.
Urinalysis negative for infection. Patient stable for discharge. Discussed follow up with patient's urologist.
Chronic conditions affecting care:
chronic urinary retention
*Pulse Oximetry
Patient hypoxic: no
*Critical Care Note
Total Time (30-74mins, 75-104mins- exclusive of procedures): Not Applicable
Data Reviewed
Review of Other/Old Records Reveals: Records (Reviewed discharge summary from 02/21/2024, patient seen for confusion secondary to UTI)
Source: patient and records
ED Attending Note
-
Portions of this chart may have been created with voice recognition software.� Occasional wrong word or��sound alike� substitutions may have occurred due to the inherent limitations of voice recognition software.
Discharge Plan
Departure
Patient Disposition: Home (Routine Discharge)
Date of Disposition: 11/18/24
Time of Disposition: 16:15
Patient with high blood pressure during this ER visit?: Yes
Condition: Good
Discharge Problem:
Hematuria
Instructions: Blood in the Urine (Hematuria), Adult (DC), BLOOD PRESSURE
Prescriptions:
No Action
atorvastatin 40 mg Tablet
40 mg PO Q48H
enalapril maleate 20 mg Tablet
20 mg PO BID
aspirin 81 mg Tablet,Delayed Release (Dr/Ec)
81 mg PO DAILY
tamsulosin 0.4 mg Capsule
0.4 mg PO HS
dutasteride 0.5 mg Capsule
0.5 mg PO DAILY
tadalafil 5 mg Tablet
5 mg PO DAILY
cholecalciferol (vitamin D3) [Vitamin D3] 50 mcg (2,000 unit) Tablet
50 mcg PO BID
magnesium oxide 400 mg magnesium Tablet
400 mg PO DAILY
PreserVision AREDS 2 Plus MV 200 mcg-15 mcg- 5 mg-1 mg Capsule
1 cap PO BID
amoxicillin-pot clavulanate 875-125 mg tablet
1 tab PO Q12H Qty: 16 0RF
ciprofloxacin HCl [Cipro] 500 mg tablet
500 mg PO BID Qty: 14 0RF
Referrals:
Andrews Moseley MD [Family Provider] -
Activity Restrictions/Additional Instructions:
Your CT scan of the abdomen showed bilateral renal cysts but no evidence of ureteral stone or urinary dilation.
Your hemoglobin is at baseline.
Please call your urologist to schedule follow up appointment.
PLEASE RETURN EMERGENCY DEPARTMENT SHOULD YOU DEVELOP ABDOMINAL PAIN, FEVERS OR CHILLS, PELVIC PAIN, BURNING WITH URINATION, URINARY FREQUENCY, URINARY URGENCY, VOMITING NAUSEA, OR ANY OTHER SIGNS OR SYMPTOMS WORRISOME TO YOU.
Interventions
Interventions:
*Risk Screen - Suicide Last Done: 11/18/24 12:45
*General Assessment Last Done: 11/18/24 13:49
*Neglect/Abuse Screening Last Done: 11/18/24 12:45
*ED- Fall Risk Assessment Last Done: 11/18/24 13:49
*ED COVID-19 Vaccine History Last Done: 11/18/24 13:49
*Nursing Disposition Last Done: 11/18/24 16:27
ED-Male Genitourinary Assessment Last Done: 11/18/24 13:49
Discharge Date and Time
Discharge Date/Time: 11/18/24 16:28
Print Language: KHMER
[2024-11-18 13:47] VITALS: BMI 25.2
[2024-11-18 13:49] VITALS: BP 140/61
[2024-11-18 14:00] VITALS: BP 141/69
[2024-11-18 14:15] LABS: % Basophils 0.4 % (0-2); % Eosinophils 1.6 % (0-6); % Immature Granulocytes 0.5 % (0-0.5); % Lymphocytes 12.5 % (20.5-51.1); % Monocytes 7.4 % (1.7-9.3); % Neutrophils 77.6 % (42.2-75.2); Absolute Eosinophils 0.1 10^3/uL (0-0.7); Absolute Monocytes 0.6 10^3/uL (0.1-0.6); Absolute Neutrophils 6.2 10^3/uL (1.4-6.5); Hematocrit 37.3 % (39.0-52.0); Hemoglobin 12.3 g/dL (13.0-18.0); Mean Corpuscular Hgb 28.4 pg (27.0-31.0); Mean Corpuscular Volume 86.1 fL (80.0-94.0); Mean Platelet Volume 10.2 fL (7.4-10.4); Nucleated Red Blood Cells % 0 % (-); Platelet Count 213 10^3/uL (130-400); Red Blood Cell Count 4.33 10^6/uL (4.70-6.10); Red Cell Dist. Width 13.5 % (11.5-14.5)
[2024-11-18 14:29] LABS: ALT (SGPT) 20 U/L (0-50); AST (SGOT) 20 U/L (17-59); Albumin 3.9 g/dl (3.5-5.0); Alkaline Phosphatase 60 U/L (38-126); Blood Urea Nitrogen 32 mg/dl (9-20); Calcium 9.5 mg/dl (8.4-10.2); Carbon Dioxide 26 mmol/L (22-30); Chloride 104 mmol/L (98-107); Estimated Creatinine Clearance 54 ml/min; Glucose 93 mg/dl (70-99); Potassium 4.2 mmol/L (3.5-5.1); Sodium 138 mmol/L (135-145); Total Bilirubin 0.5 mg/dl (0.2-1.3); Total Protein 6.3 g/dl (6.3-8.2); eGFR > 60.00
[2024-11-18 14:56] LABS: Urine Albumin Negative (Neg - Trace); Urine Bilirubin Negative (Negative); Urine Character Clear (Clear); Urine Color Yellow; Urine Glucose Negative (Negative); Urine Ketone Negative (Negative); Urine Leukocyte Negative (Negative); Urine Nitrite Negative (Negative); Urine Occult Blood 3+ (Negative); Urine Specific Gravity 1.015 (<1.030); Urine Urobilinogen Negative (Neg - 1+)
[2024-11-18 15:00] VITALS: BP 149/70
[2024-11-18 15:57] LABS: Urine Bacteria Few (Negative); Urine Squamous Cell 0-2 /LPF (Few); Urine White Cell 0-2 /HPF (0-5)
== END 2024-11-18 16:28 | disposition home or self-care (01) ==
LOC: EMR 12:42
PROVIDERS: Physician Assistant; EMERGENCY PHYSICIAN Emergency Medicine; FAMILY PHYSICIAN Internal Medicine
DX: R31.9 Hematuria, unspecified (principal); N40.1 Benign prostatic hyperplasia with lower urinary tract symptoms; Z86.73 Personal history of transient ischemic attack (TIA), and cerebral infarction without residual deficits
CPT/HCPCS: 99284; 74176; 80053; 81003; 81015; 85025

== ENCOUNTER 2025-03-05 10:34 | Outpatient (RCR) | payer MEDICARE, BC, SELFPAY | END 2025-03-05 23:59 | disposition home or self-care (01) | LOC: RST 10:34 | PROVIDERS: ATTENDING PHYSICIAN Nurse Practitioner; FAMILY PHYSICIAN Internal Medicine | DX: R47.02 Dysphasia (principal); R41.841 Cognitive communication deficit; R47.89 Other speech disturbances; Z73.6 Limitation of activities due to disability; F02.A0 Dementia in other diseases classified elsewhere, mild, without behavioral disturbance, psychotic disturbance, mood disturbance, and anxiety; G31.83 Neurocognitive disorder with Lewy bodies | CPT/HCPCS: 92507; 92523 ==

== ENCOUNTER 2025-03-27 12:33 | Outpatient (RCR) | payer MEDICARE, BC, SELFPAY | END 2025-03-27 23:59 | disposition home or self-care (01) | LOC: RST 12:33 | PROVIDERS: ATTENDING PHYSICIAN Nurse Practitioner; FAMILY PHYSICIAN Internal Medicine | DX: R47.02 Dysphasia (principal); R41.841 Cognitive communication deficit; R47.89 Other speech disturbances; Z73.6 Limitation of activities due to disability; F02.A0 Dementia in other diseases classified elsewhere, mild, without behavioral disturbance, psychotic disturbance, mood disturbance, and anxiety; G31.83 Neurocognitive disorder with Lewy bodies | CPT/HCPCS: 92507 ==